=== PATIENT | female | born 1980 | race Caucasian/White ===

== ENCOUNTER 2018-11-16 11:26 | Emergency (ER) | payer OTHER ==
[~2018-11-16] VITALS: Ht 175.3 cm; Wt 95.3 kg
[2018-11-16] MEDS ORDERED: PROZAC20 MG PO (11:39)
[2018-11-16] MEDS ORDERED: NORCO 5-325 TA1 EACH PO (12:07)
[2018-11-16] MEDS ORDERED: IBUPROFEN 800800 M1 PO (12:07)
[2018-11-16] MEDS ORDERED: CLEOCIN HCL150 MG PO (12:07)
[2018-11-16 12:17] VITALS: BP 152/98
== END 2018-11-16 12:25 | disposition home or self-care (01) ==
LOC: M.ERS 11:26
DX: K04.7 Periapical abscess without sinus (principal); Z88.2 Allergy status to sulfonamides

== ENCOUNTER 2019-04-28 11:15 | Emergency (ER) | payer OTHER ==
[~2019-04-28] VITALS: Ht 172.7 cm; Wt 90.7 kg
[~2019-04-28 11:15] MED LIST: CLEOCIN HCL150 MG PO; IBUPROFEN 800800 M1 PO; NORCO 5-325 TA1 EACH PO; PROZAC20 MG PO
[2019-04-28] MEDS ORDERED: IBUPROFEN 600600 M1 PO (11:57)
[2019-04-28] MEDS ORDERED: KEFLEX500 M1 PO (12:15)
[2019-04-28 12:23] VITALS: BP 157/99
== END 2019-04-28 12:23 | disposition home or self-care (01) ==
LOC: M.ERS 11:15
DX: S61.211A Laceration without foreign body of left index finger without damage to nail, initial encounter (principal); Z88.2 Allergy status to sulfonamides; W26.0XXA Contact with knife, initial encounter; Y92.89 Other specified places as the place of occurrence of the external cause; Y93.89 Activity, other specified; Y99.8 Other external cause status

== ENCOUNTER 2019-08-30 07:51 | Inpatient (IN) | payer OTHER ==
[~2019-08-30] VITALS: Ht 175.3 cm; Wt 101.4 kg
[~2019-08-30 07:51] MED LIST changes: +CIPROFLOXACIN500 M1 PO; +IBUPROFEN 600600 M1 PO; +KEFLEX500 M1 PO; +MOBIC15 MG PO; +NORCO 5-325 TA1 EAC1 PO
[2019-08-30 08:06] VITALS: BP 176/120
[2019-08-30 08:41] LABS: ABSOLUTE EOSINOPHILS 0.1 thou/uL (0.0-0.7); ABSOLUTE LYMPHOCYTES 1.6 thou/uL (0.8-5.3); ABSOLUTE MONOCYTES 0.6 thou/uL (0.0-1.2); BASOPHILS 0.3 %; EOSINOPHILS 1.3 %; HEMATOCRIT 41.1 % (37.0-47.0); HEMOGLOBIN 14.4 gm/dL (12.0-15.0); LYMPHOCYTES 19.4 %; MCH 32.4 pg (26.0-34.0); MCV 92.6 fL (80.0-100.0); MONOCYTES 7.6 %; MPV 6.8 fl. (7.2-11.1); NUCLEATED RBCS 0 /100WBC; PLATELET COUNT* 377 thou/uL (150-400); POLYS 71.4 %; RBC 4.44 mil/uL (4.20-5.00); RDW-CV 13.1 % (10.5-14.5); WBC 8.4 thou/uL (4.0-11.0)
[2019-08-30 08:51] LABS: ANION GAP 15 mmol/L (7-16); BUN 11 mg/dL (7-18); CALCIUM 8.6 mg/dL (8.5-10.1); CHLORIDE 101 mmol/L (98-107); CO2 21 mmol/L (21-32); CREATININE 1.1 mg/dL (0.6-1.3); GLUCOSE 119 mg/dL (70-99); POTASSIUM 3.4 mmol/L (3.5-5.1); SODIUM 137 mmol/L (136-145)
[2019-08-30 08:56] LABS: URINE BILIRUBIN NEGATIVE (Negative); URINE BLOOD 1+ (Negative); URINE CLARITY CLEAR; URINE COLOR YELLOW; URINE GLUCOSE-RANDOM NEGATIVE (Negative); URINE KETONES TRACE (Negative); URINE LEUKOCYTES-REFLEX NEGATIVE (Negative); URINE NITRITE-REFLEX NEGATIVE (Negative); URINE PROTEIN 1+ (Negative); URINE SPECIFIC GRAVITY >= 1.030 (1.005-1.030); URINE UROBILINOGEN 0.2 E.U./dl (0.2-1.0)
[2019-08-30 09:00] LABS: ALBUMIN 4.1 g/dL (3.4-5.0); ALKALINE PHOSPHATASE 61 U/L (46-116); LIPASE 154 U/L (73-393); SGOT 28 U/L (15-37); SGPT 42 U/L (30-65); TOTAL BILIRUBIN 0.3 mg/dL (<0.1-1.0); TOTAL PROTEIN 7.6 g/dL (6.4-8.2); TROPONIN-I LEVEL <0.06 ng/mL (<0.06)
[2019-08-30 09:12] LABS: SQUAMOUS >10 Many /LPF (0-3); URINE RBC 3-10 Few /HPF (0-2); URINE WBC-REFLEX None Seen /HPF (0-5)
[2019-08-30 09:13] LABS: CRYSTALS None Seen /LPF (None Seen); HYALINE CASTS 0-3 Few /LPF (None Seen); MUCUS >6 Heavy strn/LPF (None Seen)
[2019-08-30 10:30] LABS: AMP/METHAMP Negative (Negative); BARBITURATES Negative (Negative); BENZODIAZEPINES Negative (Negative); COCAINE Negative (Negative); METHADONE Negative (Negative); OPIATES Negative (Negative); PCP Negative (Negative); THC Negative (Negative)
[2019-08-30 14:45] VITALS: BP 156/99
--- NOTE | 2019-08-30 15:30 | NUR ---
ER ADMIT TO ROOM 218 VIA W/C. ADMISSION ASSESSMENT COMPLETE, DEFER TO COMPUTER CHARTING. STATION CASHIER PLACED TRACKING SR. IV FLUIDS INFUSING. NO COMPLAINTS OF NAUSEA OR DISCOMFORT AT THIS TIME. DR MONTERO INTO SEE PATIENT. ORIENTED TO ROOM/CALL AND INTRODUCED TO PLAN OF CARE. CALL LIGHT WITHIN REACH. WILL MONITOR.
[2019-08-30 16:22] VITALS: BP 145/88
--- NOTE | 2019-08-30 17:20 | EKG ---
[place] [address] ELECTROCARDIOGRAM REPORT Name: ANNAMARIE CASTILLO Room: [address] ADM IN M.R.#: [id number] Admission: 08/30/19 Attend Phys: Don Narayanan Discharge: Date of : 78 Report #: [id number] THIS REPORT FOR: //name// [facility] ED Test Date: 2019-08-30 Test Time: 08:21:33 Pat Name: ANNAMARIE CASTILLO Department: Room: [facility] Gender: F Director Of Recruitment And Admissions: TAMARA : 1980 Requested By: Lionel Collins Order Number: [id number] MD: Bakari Cunningham Measurements Intervals [place] Rate: 98 P: 45 DE: 152 QRS: 8 QRSD: 85 T: 10 QT: 360 QTc: 460 Interpretive Statements Sinus rhythm Low voltage, precordial leads No previous ECG available for comparison Electronically Signed On 08-30-2019 17:19:50 CDT by Bakari Cunningham [email or web address] <ELECTRONICALLY SIGNED> By: Bakari Cunningham MD, [facility] 08/30/19 1719 0 0 Bakari Cunningham MD, [facility] /EPI
--- NOTE | 2019-08-30 18:15 | NUR ---
PATIENT REPORTING HAVING NAUSEA AND ABD DISCOMFORT WHEN ROUNDING. CALL PLACED TO DR BAEZA TO NOTIFY.
[2019-08-31] VITALS: BP 127/87
--- NOTE | 2019-08-31 03:29 | NUR ---
ASSUMED CARE OF PT AT 1900. PT IS ALERT AND ORIENTED. VSS. PERINA. PT REPORTS ONGOING PAIN IN HER FLANK AREA. PT RECIEVING FENTANYL FOR PAIN. PT ALSO HAS A HEATING PAD. PT IS IN SINUS RYTHM ON THE TELEMETRY. PT IS RESTING COMFORTABLY IN BED. RESPIRATIONS ARE EVEN AND NONLABORED. WILL CONTINUE TO MONITOR PT.
[2019-08-31 04:00] VITALS: BP 129/79
[2019-08-31 07:30] VITALS: BP 151/99
[2019-08-31 13:00] VITALS: BP 146/100
[2019-08-31 14:34] LABS: CALCIUM 7.9 mg/dL (8.5-10.1); MAGNESIUM 2.1 mg/dL (1.8-2.4); POTASSIUM 3.4 mmol/L (3.5-5.1)
--- NOTE | 2019-08-31 16:10 | NUR ---
cm attempted to complete assessment, but pt was asleep. cm to f/u at a later date
[2019-08-31 19:30] VITALS: BP 149/97
[2019-08-31 23:37] VITALS: BP 123/75
--- NOTE | 2019-09-01 03:18 | NUR ---
ASSUMED CARE OF PT AT 1900. PT IS ALERT AND ORIENTED. VSS. PERRLA. UP AD SUHAS. PT IS IN SINUS RYTHM ON THE TELEMETRY. PT IS RESTING COMFORTABLY IN BED. RESPIRATIONS ARE EVEN AND NONLABORED. WILL CONTINUE TO MONITOR PT.
[2019-09-01 04:00] VITALS: BP 146/89
--- NOTE | 2019-09-01 08:34 | CON ---
[address] [address] CONSULTATION Name: ANNAMARIE CASTILLO Room: [address] IN M.R.#: [id number] Admission: 08/30/19 Attend Phys: Don Narayanan Discharge: Date of : 78 Report #: [id number] THIS REPORT FOR: //name// CC: Etelvina Lomeli DATE OF SERVICE: 08/31/2019 ATTENDING PHYSICIAN: Dr. Lomeli. REASON FOR EVALUATION: Colitis. HISTORY OF PRESENT ILLNESS: Chart reviewed, the patient was examined. This is a 39-year-old woman with known history of celiac disease diagnosed in 2012, this manifested by left pretibial skin rash, had presented to the Emergency Room twice in last 48 hours initially complained of nausea, emesis, fevers, back pain and hematuria. It is notable that she has a history of renal lithiasis, felt this was likely the cause. The evaluation did show bacteriuria, although a little pyuria and it was treated with ciprofloxacin, this subsequently led to some loose stools. Due to lack of improvement and persistent left-sided abdominal flank pain, she returned to the Emergency Room. Urinalysis was similar in appearance. Followup imaging had noted no obstructive uropathy; however, did show mild somewhat generalized colitis spiculated perhaps on a chronic basis. She has been afebrile since her admission. She was started with dose of ceftriaxone and metronidazole. She has not had loose stool since admission, although the study has been ordered. She is not encephalopathic. Denies any significant pulmonary-related complaints. On questioning, she denies particular exposure history. No recent travel. She does have animals in the house, although those are exclusively indoor. She travelled to [place] in last couple of weeks for a birthday alliance party. ALLERGIES: SULFA. CURRENT MEDICATIONS: Include metronidazole, Flagyl, ondansetron, morphine had received a dose of levofloxacin and ceftriaxone as well. PAST MEDICAL HISTORY: As described above, history of celiac disease, also history of renal lithiasis and anxiety. PAST SURGICAL HISTORY: Hysterectomy, appendectomy and cholecystectomy. SOCIAL HISTORY: Nonsmoker, occasional ethanol, no illicit drug use. FAMILY HISTORY: Noncontributory. REVIEW OF SYSTEMS: Otherwise, unremarkable 10-point review [place] [address] CONSULTATION Name: ANNAMARIE CASTILLO Room: [address]#: [id number] Admission: 08/30/19 Attend Phys: Don Narayanan Discharge: Date of : 78 Report #: [id number]. PHYSICAL EXAMINATION: GENERAL: Alert, cooperative, appropriate. She is in wctk-rq-lsiygqaz distress. She is not encephalopathic. She appears to be well nourished. VITAL SIGNS: Temperature 98.3, pulse 70, respirations 16, blood pressure is 129/79. SKIN: Warm, dry, no rashes. HEENT: Normocephalic. Extraocular muscles intact. NECK: Supple. LUNGS: Clear to auscultation. HEART: Regular. I do not appreciate a murmur. ABDOMEN: Soft. It is tender left side. There are no overt peritoneal signs. GENITOURINARY AND RECTAL: Deferred. EXTREMITIES: Distal lower extremities were generally unremarkable, kind of scaly type rash over her left pretibial site. LABORATORY DATA: Blood cultures are sterile thus far. Initial urinalysis: 2+ blood, 0-5 white cells, 10-30 bacteria. CBC: White count 6.2 initially, repeat this admission was 8.4, H and H 14.4 and 41.1, platelets of 377. Lactic acid was up to 3.6, repeat was 1.5. Blood cultures sterile thus far. Electrolytes: Sodium 137, potassium 3.4, chloride 101, bicarbonate is 21, anion gap of 15, BUN and creatinine 11 and 1.1, glucose of 119. AST of 28, ALT 42, albumin 4.1, total protein 7.6. CT of abdomen and pelvis as described above. No evidence of nephrolithiasis, hydronephrosis or hydroureter, mild diffuse bowel wall thickening throughout the colon, question chronic colitis. ASSESSMENT AND PLAN: Febrile illness with left-sided flank abdominal pain, hematuria, so most likely had ureteral stone that passed. We will continue empiric antimicrobial therapy with ceftriaxone and metronidazole. Chronic colitis it is difficult to ascertain whether this is perhaps due to the celiac disease. Other considerations may be some sort of an occult process, why would flare and the chronic nature of this is not entirely clear. I doubt that there is any ischemic component. We will await her clinical course, if she has diarrhea, certainly send that for enteric pathogens. C. diff the event that generally resolve her current signs and symptoms, may consider colonoscopy to evaluate. <ELECTRONICALLY SIGNED> By: Cuba Slater MD 09/01/19 0834 0845 [id number] Slater MD /nt
--- NOTE | 2019-09-01 09:00 | NUR ---
ASSUMED CARE AFTER REPORT APPROX 0730. A&OX4, ABLE TO COMMUNICATE NEEDS TO STAFF. CORPORATE DIRECTOR TALENT ASSESSMENT IN PLACE, SR. O2 SAT 99% RA. K-PAD OVER LUQ ABDOMEN. PATIENT C/O USUAL PAIN. PATIENT WITHOUT C/O SOA, N/V OR OTHER DISTRESS. UP AD SUHAS WITH STEADY GAIT TO BATHROOM. CALL LIGHT WITHIN REACH. HOURLY ROUNDING FOR SAFETY AND PATIENT NEEDS.
[2019-09-01 09:05] VITALS: BP 163/99
[2019-09-01 12:43] VITALS: BP 138/83
--- NOTE | 2019-09-01 14:14 | NUR ---
SW met with pt to complete initial assessment, introduce self, and SW role. Pt alert, oriented, pleasant. Pt independent with no needs expressed. Pt lives at home with family.
[2019-09-01 16:00] VITALS: BP 121/78
[2019-09-01 23:30] VITALS: BP 126/81
[2019-09-02 04:14] VITALS: BP 138/84
--- NOTE | 2019-09-02 05:59 | NUR ---
ASSUMED CARE OF PT AT 1900. PT IS ALERT AND ORIENTED. VSS. PERRLA. PT IS IN SINUS RYTHM ON THE TELEMETRY. PT IS RESTING COMFORTABLY INBED. RESPIRATIONS ARE EVEN AND NONLABORED. WILL CONTINUE TO MONITOR PT.
[2019-09-02 07:52] VITALS: BP 143/94
[2019-09-02 11:12] VITALS: BP 130/86
--- NOTE | 2019-09-02 12:20 | CON ---
[address] [address] CONSULTATION Name: ANNAMARIE CASTILLO Room: [address] IN M.R.#: [id number] Admission: 08/30/19 Attend Phys: Don Narayanan Discharge: Date of : 78 Report #: [id number] THIS REPORT FOR: //name// CC: Etelvina Bryant [facility] Sergei Lomeli DICTATED BY: Monisha Reagan MANAGER LAUNDRY DATE OF SERVICE: 08/31/2019 Please note, at the time of this dictation, the patient was seen and physically examined by myself. REASON FOR CONSULTATION: Nausea, vomiting, diarrhea and abdominal pain. HISTORY OF PRESENT ILLNESS: This is a 39-year-old female who was diagnosed with celiac disease several years ago, presenting to the Emergency Room with fever. She was having some night sweats. She started having some generalized abdominal pain, more on the left side as well as it was starting of diarrhea. The patient states on Tuesday, she was diagnosed with a urinary tract infection and started on Cipro. She did notice that her diarrhea started after the first dose of her Cipro and has progressively gotten worse to the point that she is having significant discomfort. She denies any bright red blood or any melena in her stool. She did have some episodes of nausea and vomiting associated with this with no evidence of any bright red blood or coffee-ground emesis. ALLERGIES: SULFA. MEDICATIONS FROM HOME: She has been taking ibuprofen and ciprofloxacin. PAST MEDICAL HISTORY: Anxiety. PAST SURGICAL HISTORY: Hysterectomy, appendectomy and cholecystectomy. FAMILY HISTORY: Significant for mother breast and uterine cancer and maternal grandfather colon cancer in his early 60s and mother with all of her issues in her 40s. SOCIAL HISTORY: Denies any alcohol except rarely socially, tobacco or illegal drug use. REVIEW OF SYSTEMS: Twelve-point review of systems is essentially negative except what is mentioned in the HPI. PHYSICAL EXAMINATION: [place] [address] CONSULTATION Name: ANNAMARIE CASTILLO Room: [address]#: [id number] Admission: 08/30/19 Attend Phys: Don Narayanan Discharge: Date of : 78 Report #: [id number] VITAL SIGNS: Temperature 36.8, pulse 87, respirations 16, blood pressure 151/99. HEART: Regular rate and rhythm. LUNGS: Clear. ABDOMEN: Soft, positive bowel sounds in all 4 quadrants with pain noted in the mid transverse and down the left side. LABORATORY DATA: Hemoglobin is 14.4, white count is 8.4 and platelets 377. GFR is 55. CT showed mild diffuse wall thickening throughout the entire colon. IMPRESSION: 1. Nausea and vomiting. 2. Diarrhea. 3. Abdominal pain. 4. Abnormal CT. 5. History of celiac disease. 6. Family history of breast and uterine in her mother and colon cancer in her maternal grandfather. PLAN: 1. Await stool studies. 2. Continue her Flagyl. 3. Further recommendations to be made once the stool studies have been noted. 4. If above are negative, we will need to proceed with a colonoscopy. Otherwise, if positive, we will do as an outpatient. Thank you for allowing us to participate in this patient's care. Please do not hesitate to call with any questions in regard to this consult. Agree with above assessment and plan by Monisha Reagan <ELECTRONICALLY SIGNED> By: Fransisco Iniguez MD 09/02/19 1220 1138 1201Fransisco Iniguez MD /nt
[2019-09-02] MEDS ORDERED: FLORASTOR250 MG PO (12:36)
[2019-09-02] MEDS ORDERED: NORCO 5-325 TA1 EAC1 PO (13:41)
[2019-09-02 13:47] VITALS: BP 130/86
[2019-09-02 13:59] LABS: ABSOLUTE EOSINOPHILS 0.2 thou/uL (0.0-0.7); ABSOLUTE LYMPHOCYTES 1.8 thou/uL (0.8-5.3); ABSOLUTE MONOCYTES 0.4 thou/uL (0.0-1.2); ABSOLUTE NEUTROPHILS 3.7 thou/uL (1.6-8.1); BASOPHILS 0.5 %; EOSINOPHILS 2.8 %; HEMATOCRIT 39.2 % (37.0-47.0); HEMOGLOBIN 13.4 gm/dL (12.0-15.0); LYMPHOCYTES 28.9 %; MCH 32.1 pg (26.0-34.0); MCHC 34.2 g/dL (28.0-37.0); MCV 93.8 fL (80.0-100.0); NUCLEATED RBCS 0 /100WBC; PLATELET COUNT* 330 thou/uL (150-400); POLYS 60.8 %; RBC 4.18 mil/uL (4.20-5.00); WBC 6.1 thou/uL (4.0-11.0)
[2019-09-02 14:05] LABS: CALCIUM 8.6 mg/dL (8.5-10.1); CREATININE 0.9 mg/dL (0.6-1.3); MAGNESIUM 1.9 mg/dL (1.8-2.4); POTASSIUM 3.6 mmol/L (3.5-5.1)
== END 2019-09-02 14:30 | disposition home or self-care (01) | DRG 872 ==
LOC: M.ERS 07:51 → M.2W 10:28 → M.TBA-ER 10:28 → M.2W 14:55
PROVIDERS: Emergency Medicine Emergency Medical Services; ADMIT Internal Medicine
DX: A41.9 Sepsis, unspecified organism (principal); F41.9 Anxiety disorder, unspecified; R31.9 Hematuria, unspecified; K90.0 Celiac disease; K52.839 Microscopic colitis, unspecified; Z90.710 Acquired absence of both cervix and uterus; Z88.2 Allergy status to sulfonamides; Z90.49 Acquired absence of other specified parts of digestive tract; Z80.3 Family history of malignant neoplasm of breast; Z80.59 Family history of malignant neoplasm of other urinary tract organ; Z80.0 Family history of malignant neoplasm of digestive organs; Z28.21 Immunization not carried out because of patient refusal; Z79.899 Other long term (current) drug therapy

== ENCOUNTER 2019-09-17 08:40 | Emergency (ER) | payer OTHER ==
[~2019-09-17] VITALS: Ht 175.3 cm; Wt 90.7 kg
[~2019-09-17 08:40] MED LIST changes: +FLORASTOR250 MG PO
[2019-09-17 09:00] LABS: ABSOLUTE BASOPHILS 0.1 thou/uL (0.0-0.2); ABSOLUTE EOSINOPHILS 0.1 thou/uL (0.0-0.7); ABSOLUTE LYMPHOCYTES 2.3 thou/uL (0.8-5.3); ABSOLUTE MONOCYTES 0.5 thou/uL (0.0-1.2); ABSOLUTE NEUTROPHILS 4.8 thou/uL (1.6-8.1); BASOPHILS 0.6 %; EOSINOPHILS 1.3 %; HEMATOCRIT 40.2 % (37.0-47.0); HEMOGLOBIN 13.9 gm/dL (12.0-15.0); LYMPHOCYTES 30.1 %; MCH 31.8 pg (26.0-34.0); MCHC 34.7 g/dL (28.0-37.0); MCV 91.6 fL (80.0-100.0); MONOCYTES 6.6 %; MPV 6.6 fl. (7.2-11.1); NUCLEATED RBCS 0 /100WBC; PLATELET COUNT* 343 thou/uL (150-400); POLYS 61.4 %; RBC 4.38 mil/uL (4.20-5.00); RDW-CV 13.2 % (10.5-14.5); WBC 7.8 thou/uL (4.0-11.0)
[2019-09-17 09:07] LABS: URINE BILIRUBIN NEGATIVE (Negative); URINE BLOOD 1+ (Negative); URINE CLARITY CLEAR; URINE COLOR YELLOW; URINE GLUCOSE-RANDOM NEGATIVE (Negative); URINE KETONES NEGATIVE (Negative); URINE LEUKOCYTES-REFLEX NEGATIVE (Negative); URINE NITRITE-REFLEX NEGATIVE (Negative); URINE PROTEIN NEGATIVE (Negative); URINE SPECIFIC GRAVITY <= 1.005 (1.005-1.030); URINE UROBILINOGEN 0.2 E.U./dl (0.2-1.0)
[2019-09-17 09:08] LABS: CREATININE 0.8 mg/dL (0.6-1.3); POTASSIUM 3.9 mmol/L (3.5-5.1)
[2019-09-17 09:13] LABS: ALBUMIN 4.1 g/dL (3.4-5.0); TOTAL BILIRUBIN 0.2 mg/dL (<0.1-1.0); TOTAL PROTEIN 7.7 g/dL (6.4-8.2)
[2019-09-17 09:14] LABS: AMP/METHAMP Negative (Negative); BARBITURATES Negative (Negative); BENZODIAZEPINES Negative (Negative); COCAINE Negative (Negative); METHADONE Negative (Negative); OPIATES Negative (Negative); PCP Negative (Negative); THC Negative (Negative)
[2019-09-17 09:17] LABS: SQUAMOUS >10 Many /LPF (0-3)
[2019-09-17 09:19] LABS: URINE RBC 0-2 Rare /HPF (0-2); URINE WBC-REFLEX 0-5 Rare /HPF (0-5)
[2019-09-17 09:20] LABS: BACTERIA-REFLEX 1-9 Few /HPF (None Seen); CASTS None Seen /LPF (None Seen); CRYSTALS None Seen /LPF (None Seen); MUCUS 0-3 Light strn/LPF (None Seen)
[2019-09-17 09:45] LABS: ACETAMINOPHEN < 2 ug/mL (10-30); ALCOHOL 19 mg/dL (<10); SALICYLATE < 2.8 mg/dL (2.8-20.0)
[2019-09-17 11:32] VITALS: BP 160/101
== END 2019-09-17 11:33 | disposition home or self-care (01) ==
LOC: M.ERS 08:40
PROVIDERS: Family Medicine
DX: F32.9 Major depressive disorder, single episode, unspecified (principal); F41.9 Anxiety disorder, unspecified; Z88.2 Allergy status to sulfonamides; Z90.710 Acquired absence of both cervix and uterus; Z90.49 Acquired absence of other specified parts of digestive tract

== ENCOUNTER 2019-11-30 13:02 | Emergency (ER) | payer OTHER ==
[~2019-11-30] VITALS: Ht 175.3 cm; Wt 90.7 kg
[2019-11-30 15:10] VITALS: BP 152/97
== END 2019-11-30 15:10 | disposition home or self-care (01) ==
LOC: M.ERS 13:02
DX: S20.211A Contusion of right front wall of thorax, initial encounter (principal); Z88.2 Allergy status to sulfonamides; Z90.710 Acquired absence of both cervix and uterus; Z90.49 Acquired absence of other specified parts of digestive tract; W18.39XA Other fall on same level, initial encounter; Y93.89 Activity, other specified; Y92.89 Other specified places as the place of occurrence of the external cause; Y99.8 Other external cause status

== ENCOUNTER 2020-08-20 07:58 | Emergency (ER) | payer OTHER ==
[~2020-08-20] VITALS: Ht 175.3 cm; Wt 90.7 kg
[2020-08-20] MEDS ORDERED: LISINOPRIL2.5 MG PO (08:09)
[2020-08-20 08:17] LABS: URINE BLOOD 1+ (Negative); URINE CLARITY CLEAR; URINE COLOR YELLOW; URINE GLUCOSE-RANDOM NEGATIVE (Negative); URINE KETONES NEGATIVE (Negative); URINE LEUKOCYTES-REFLEX NEGATIVE (Negative); URINE NITRITE-REFLEX NEGATIVE (Negative); URINE PROTEIN NEGATIVE (Negative); URINE UROBILINOGEN 0.2 E.U./dl (0.2-1.0)
[2020-08-20 08:27] LABS: ABSOLUTE EOSINOPHILS 0.1 thou/uL (0.0-0.7); ABSOLUTE LYMPHOCYTES 3.1 thou/uL (0.8-5.3); ABSOLUTE MONOCYTES 0.7 thou/uL (0.0-1.2); ABSOLUTE NEUTROPHILS 4.1 thou/uL (1.6-8.1); BASOPHILS 0.4 %; EOSINOPHILS 1.7 %; HEMATOCRIT 38.8 % (37.0-47.0); HEMOGLOBIN 13.8 gm/dL (12.0-15.0); LYMPHOCYTES 38.7 %; MCHC 35.4 g/dL (28.0-37.0); MCV 90.4 fL (80.0-100.0); MONOCYTES 8.9 %; MPV 6.8 fl. (7.2-11.1); NUCLEATED RBCS 0 /100WBC; PLATELET COUNT* 340 thou/uL (150-400); POLYS 50.3 %; RBC 4.29 mil/uL (4.20-5.00); RDW-CV 13.3 % (10.5-14.5); WBC 8.1 thou/uL (4.0-11.0)
[2020-08-20 08:33] LABS: CALCIUM 8.5 mg/dL (8.5-10.1); POTASSIUM 3.5 mmol/L (3.5-5.1)
[2020-08-20 08:37] LABS: ICTOTEST (BILI CONFIRMATORY) Negative (Negative); SQUAMOUS 0-3 Few /LPF (0-3); URINE BILIRUBIN 1+ (Negative); URINE RBC 0-2 Rare /HPF (0-2); URINE WBC-REFLEX 6-15 Few /HPF (0-5)
[2020-08-20 08:37] LABS: ALBUMIN 4.1 g/dL (3.4-5.0); TOTAL BILIRUBIN 0.5 mg/dL (<0.1-1.0); TOTAL PROTEIN 7.8 g/dL (6.4-8.2)
[2020-08-20 08:38] LABS: BACTERIA-REFLEX >30 Many /HPF (None Seen); CASTS None Seen /LPF (None Seen); CRYSTALS None Seen /LPF (None Seen)
[2020-08-20] MEDS ORDERED: MACROBID 100 M100 M1 PO (09:34)
[2020-08-20] MEDS ORDERED: NORCO 5-325 TA1 EAC2 PO (09:34)
[2020-08-20] MEDS ORDERED: ZOFRAN ODT4 MG SUBLING (09:34)
[2020-08-20 09:55] VITALS: BP 141/85
--- NOTE | 2020-08-20 14:32 | EKG ---
[place] [address] ELECTROCARDIOGRAM REPORT Name: ANNAMARIE CASTILLO Room: [facility]#: [id number] Admission: 08/20/20 Attend Phys: Discharge: 08/20/20 Date of : 78 Date of Service: 08/20/20824 Report #: [id number] THIS REPORT FOR: //name// [facility] ED Test Date: 2020-08-20 Test Time: 08:25:03 Pat Name: ANNAMARIE CASTILLO Department: Room: Gender: F Barrel Lathe Operator: : 1980 Requested By: Hollis Duarte Order Number: [id number] MD: Theodore Rivera Measurements Intervals [place] Rate: 115 P: 55 IA: 144 QRS: 24 QRSD: 99 T: 8 QT: 341 QTc: 472 Interpretive Statements Sinus tachycardia Compared to ECG 08/30/2019 08:21:33 Sinus rhythm no longer present Electronically Signed On 08-20-2020 14:32:13 CDT by Theodore Rivera [email or web address] <ELECTRONICALLY SIGNED> By: Theodore Rivera MD, [facility] 08/20/20 1432 4 4 Theodore Rivera MD, [facility] /EPI
== END 2020-08-20 09:55 | disposition home or self-care (01) ==
LOC: M.ERS 07:58
PROVIDERS: Family Medicine
DX: N39.0 Urinary tract infection, site not specified (principal); R11.2 Nausea with vomiting, unspecified; I10 Essential (primary) hypertension; F41.9 Anxiety disorder, unspecified; Z90.710 Acquired absence of both cervix and uterus; Z90.49 Acquired absence of other specified parts of digestive tract; Z87.440 Personal history of urinary (tract) infections; Z88.2 Allergy status to sulfonamides

== ENCOUNTER 2020-08-24 09:01 | Emergency (ER) | payer OTHER ==
[~2020-08-24] VITALS: Ht 172.7 cm; Wt 90.7 kg
[~2020-08-24 09:01] MED LIST changes: +LISINOPRIL2.5 MG PO; +MACROBID 100 M100 M1 PO; +NORCO 5-325 TA1 EAC2 PO; +ZOFRAN ODT4 MG SUBLING
[2020-08-24 09:30] LABS: URINE BILIRUBIN NEGATIVE (Negative); URINE BLOOD TRACE (Negative); URINE CLARITY CLEAR; URINE COLOR YELLOW; URINE GLUCOSE-RANDOM NEGATIVE (Negative); URINE KETONES NEGATIVE (Negative); URINE LEUKOCYTES-REFLEX NEGATIVE (Negative); URINE NITRITE-REFLEX NEGATIVE (Negative); URINE PROTEIN 1+ (Negative); URINE UROBILINOGEN 0.2 E.U./dl (0.2-1.0)
[2020-08-24 09:58] LABS: ABSOLUTE BASOPHILS 0.1 thou/uL (0.0-0.2); ABSOLUTE EOSINOPHILS 0.1 thou/uL (0.0-0.7); ABSOLUTE LYMPHOCYTES 2.3 thou/uL (0.8-5.3); ABSOLUTE MONOCYTES 0.7 thou/uL (0.0-1.2); ABSOLUTE NEUTROPHILS 6.5 thou/uL (1.6-8.1); BASOPHILS 0.7 %; EOSINOPHILS 0.9 %; HEMATOCRIT 39.9 % (37.0-47.0); LYMPHOCYTES 23.7 %; MCH 31.6 pg (26.0-34.0); MCHC 34.9 g/dL (28.0-37.0); MCV 90.6 fL (80.0-100.0); MONOCYTES 7.1 %; MPV 7.2 fl. (7.2-11.1); NUCLEATED RBCS 0 /100WBC; PLATELET COUNT* 366 thou/uL (150-400); POLYS 67.6 %; RBC 4.41 mil/uL (4.20-5.00); RDW-CV 13.5 % (10.5-14.5); WBC 9.6 thou/uL (4.0-11.0)
[2020-08-24 10:10] LABS: CALCIUM 8.7 mg/dL (8.5-10.1); POTASSIUM 3.6 mmol/L (3.5-5.1)
[2020-08-24 10:15] LABS: ALBUMIN 4.1 g/dL (3.4-5.0); TOTAL BILIRUBIN 0.3 mg/dL (<0.1-1.0); TOTAL PROTEIN 7.7 g/dL (6.4-8.2)
[2020-08-24 10:19] VITALS: BP 149/71
== END 2020-08-24 10:20 | disposition home or self-care (01) ==
LOC: M.ERS 09:01
PROVIDERS: Family Medicine
DX: M54.5 Low back pain (principal); R11.2 Nausea with vomiting, unspecified; I10 Essential (primary) hypertension; F41.9 Anxiety disorder, unspecified; Z90.49 Acquired absence of other specified parts of digestive tract; Z90.710 Acquired absence of both cervix and uterus; Z88.2 Allergy status to sulfonamides; Z88.8 Allergy status to other drugs, medicaments and biological substances

== ENCOUNTER 2020-11-03 15:43 | Emergency (ER) | payer OTHER ==
[~2020-11-03] VITALS: Ht 170.2 cm; Wt 77.1 kg
[2020-11-03 15:52] VITALS: BP 144/100
[2020-11-03 15:57] LABS: URINE BILIRUBIN NEGATIVE (Negative); URINE BLOOD TRACE (Negative); URINE CLARITY CLEAR; URINE COLOR YELLOW; URINE GLUCOSE-RANDOM NEGATIVE (Negative); URINE KETONES NEGATIVE (Negative); URINE LEUKOCYTES-REFLEX NEGATIVE (Negative); URINE NITRITE-REFLEX NEGATIVE (Negative); URINE PROTEIN NEGATIVE (Negative); URINE SPECIFIC GRAVITY 1.015 (1.005-1.030); URINE UROBILINOGEN 0.2 E.U./dl (0.2-1.0)
[2020-11-03 16:10] LABS: ABSOLUTE BASOPHILS 0.1 thou/uL (0.0-0.2); ABSOLUTE EOSINOPHILS 0.1 thou/uL (0.0-0.7); ABSOLUTE MONOCYTES 1.3 thou/uL (0.0-1.2); ABSOLUTE NEUTROPHILS 7.4 thou/uL (1.6-8.1); BASOPHILS 0.7 %; EOSINOPHILS 0.7 %; HEMATOCRIT 39.2 % (37.0-47.0); HEMOGLOBIN 13.1 gm/dL (12.0-15.0); LYMPHOCYTES 36.1 %; MCH 30.8 pg (26.0-34.0); MCHC 33.4 g/dL (28.0-37.0); MCV 92.2 fL (80.0-100.0); MONOCYTES 9.1 %; MPV 6.7 fl. (7.2-11.1); NUCLEATED RBCS 0 /100WBC; PLATELET COUNT* 368 thou/uL (150-400); POLYS 53.4 %; RBC 4.25 mil/uL (4.20-5.00); RDW-CV 13.6 % (10.5-14.5); WBC 13.8 thou/uL (4.0-11.0)
[2020-11-03 16:18] LABS: CALCIUM 7.9 mg/dL (8.5-10.1); CREATININE 0.9 mg/dL (0.6-1.3); POTASSIUM 3.6 mmol/L (3.5-5.1)
[2020-11-03 16:22] LABS: ALBUMIN 3.6 g/dL (3.4-5.0); TOTAL BILIRUBIN 0.2 mg/dL (<0.1-1.0); TOTAL PROTEIN 7.3 g/dL (6.4-8.2)
[2020-11-03] MEDS ORDERED: FLEXERIL PO (16:40)
[2020-11-03] MEDS ORDERED: AUGMENTIN 875-1 EACH PO (16:40)
[2020-11-03] MEDS ORDERED: NORCO 5-325 TA1 EAC2 PO (16:40)
== END 2020-11-03 17:04 | disposition home or self-care (01) ==
LOC: M.ERS 15:43
PROVIDERS: Family Medicine
DX: J06.9 Acute upper respiratory infection, unspecified (principal); Z20.828 Contact with and (suspected) exposure to other viral communicable diseases; I10 Essential (primary) hypertension; Z90.710 Acquired absence of both cervix and uterus; Z90.49 Acquired absence of other specified parts of digestive tract; Z88.2 Allergy status to sulfonamides; Z88.1 Allergy status to other antibiotic agents

== ENCOUNTER 2021-01-02 14:34 | Emergency (ER) | payer OTHER ==
[~2021-01-02] VITALS: Ht 172.7 cm; Wt 95.3 kg
[~2021-01-02 14:34] MED LIST changes: +AUGMENTIN 875-1 EACH PO; +FLEXERIL PO
[2021-01-02 15:53] LABS: ABSOLUTE BASOPHILS 0.1 thou/uL (0.0-0.2); ABSOLUTE EOSINOPHILS 0.1 thou/uL (0.0-0.7); ABSOLUTE LYMPHOCYTES 2.8 thou/uL (0.8-5.3); ABSOLUTE NEUTROPHILS 5.9 thou/uL (1.6-8.1); BASOPHILS 0.6 %; EOSINOPHILS 0.6 %; HEMATOCRIT 40.3 % (37.0-47.0); HEMOGLOBIN 13.5 gm/dL (12.0-15.0); LYMPHOCYTES 28.7 %; MCH 30.8 pg (26.0-34.0); MCHC 33.4 g/dL (28.0-37.0); MCV 92.3 fL (80.0-100.0); MONOCYTES 9.8 %; NUCLEATED RBCS 0 /100WBC; PLATELET COUNT* 302 thou/uL (150-400); POLYS 60.3 %; RBC 4.36 mil/uL (4.20-5.00); RDW-CV 13.3 % (10.5-14.5); WBC 9.7 thou/uL (4.0-11.0)
[2021-01-02 15:53] LABS: URINE BILIRUBIN NEGATIVE (Negative); URINE BLOOD TRACE (Negative); URINE CLARITY CLEAR; URINE COLOR YELLOW; URINE GLUCOSE-RANDOM NEGATIVE (Negative); URINE KETONES NEGATIVE (Negative); URINE LEUKOCYTES-REFLEX NEGATIVE (Negative); URINE NITRITE-REFLEX NEGATIVE (Negative); URINE PROTEIN NEGATIVE (Negative); URINE SPECIFIC GRAVITY 1.015 (1.005-1.030); URINE UROBILINOGEN 0.2 E.U./dl (0.2-1.0)
[2021-01-02 15:57] LABS: CALCIUM 8.7 mg/dL (8.5-10.1); CREATININE 1.1 mg/dL (0.6-1.3); POTASSIUM 3.4 mmol/L (3.5-5.1)
[2021-01-02 16:02] LABS: TOTAL BILIRUBIN 0.2 mg/dL (<0.1-1.0); TOTAL PROTEIN 7.4 g/dL (6.4-8.2)
[2021-01-02 16:20] LABS: INFLUENZA A ANTIGEN Negative (Negative); INFLUENZA B ANTIGEN Negative (Negative)
[2021-01-02] MEDS ORDERED: APAP W/CODEINE1 TA2 PO (16:58)
[2021-01-02 17:28] VITALS: BP 120/70
--- NOTE | 2021-01-05 16:58 | EKG ---
[place] [address] ELECTROCARDIOGRAM REPORT Name: ANNAMARIE CASTILLO Room: [facility]#: [id number] Admission: 01/02/21 Attend Phys: Discharge: 01/02/21 Date of : 78 Date of Service: 01/02/21 1516 Report #: [id number] THIS REPORT FOR: //name// [facility] ED Test Date: 2021-01-02 Test Time: 15:16:06 Pat Name: ANNAMARIE CASTILLO Department: Room: Gender: F Customer Care Team Coach: WAGNER : 1980 Requested By: Norberto Coker Order Number: [id number] Reading MD: Charly Suarez Measurements Intervals [place] Rate: 119 P: 47 NE: 149 QRS: 15 QRSD: 94 T: 3 QT: 332 QTc: 468 Interpretive Statements Sinus tachycardia Probable left atrial enlargement Low voltage, precordial leads Borderline T wave abnormalities Compared to ECG 08/20/2020 08:25:03 Low QRS voltage now present T-wave abnormality now present Electronically Signed On 01-05-2021 16:58:32 TEMPLATE LAYOUT WORKER by Charly Suarez [email or web address] <ELECTRONICALLY SIGNED> By: Charly Suarez MD, [facility] 01/05/21 1658 1516 1516 Charly Suarez MD, [facility] /EPI
== END 2021-01-02 17:28 | disposition home or self-care (01) ==
LOC: M.ERS 14:34
PROVIDERS: Physician Assistant
DX: R51.9 Headache, unspecified (principal); I10 Essential (primary) hypertension; Z88.2 Allergy status to sulfonamides; Z88.1 Allergy status to other antibiotic agents; Z90.710 Acquired absence of both cervix and uterus; Z90.49 Acquired absence of other specified parts of digestive tract